=== PATIENT | male | born 1980 | race Caucasian/White ===

== ENCOUNTER 2021-07-24 14:41 | Outpatient (REF) | payer OTHER, SELFPAY | END 2021-07-24 14:42 | disposition home or self-care (01) | LOC: HO.LAB 14:41 | PROVIDERS: Visit Provider Internal Medicine | DX: Z20.822 Contact with and (suspected) exposure to COVID-19 (principal) | CPT/HCPCS: C9803; U0003; U0005 ==

== ENCOUNTER 2021-11-28 10:01 | Emergency (ER) | payer SELFPAY ==
[2021-11-28 11:35] VITALS: BP 172/85; PULSE 74; RESP 19; TEMP 36.6; O2SAT 99; BMI 28.1
[2021-11-28 14:14] LABS: MANUAL DIFF FLAG NO
[2021-11-28 14:16] LABS: Basophils Percent Auto 0.3 % (0-2); Eosinophils Percent Auto 0.3 % (0-4); Hematocrit 48.8 % (42.0-52.0); Imm Gran Abs Auto 0.02 X10*3/uL (0.00-0.03); Imm Gran Pct Auto 0.3 % (0.0-0.4); Lymphocytes Absolute Auto 1.3 X10*3/uL (1.2-4.9); Mean Corpuscular HGB Conc 34.8 g/dl (31.0-36.0); Mean Corpuscular Hemoglobin 30.7 pg (27.0-33.0); Mean Corpuscular Volume 88.2 fL (80.0-98.0); Mean Platelet Volume 9.5 fL (9.4-12.4); Monocytes Absolute Auto 0.4 X10*3/uL (0.1-1.2); Monocytes Percent Auto 5.4 % (2-11); Neutrophils Absolute Auto 5.8 x10*3/uL (2.0-8.3); Neutrophils Percent Auto 76.7 % (45-73); Platelet Count 272 X10*3/uL (160-400); Red Blood Count 5.53 X10*6/uL (4.60-5.80); Red Cell Distribution Width 11.7 % (11.0-16.0); White Blood Count 7.5 X10*3/uL (4.8-10.8)
[2021-11-28 14:25] LABS: Appearance Urine CLOUDY; Color Urine RED; Glucose Urine UA NEG (NEG); Nitrite Urine NEG (NEG); Specific Gravity - Urine 1.015 (1.005-1.025); UACC Culture Trigger NO; Urine Blood 3+ (NEG); Urine Ketones NEG (NEG); Urine Protein 2+ MG/DL (NEG-TRACE)
[2021-11-28 14:29] LABS: Leukocyte Esterase Urine NEG (NEG)
[2021-11-28 14:32] LABS: Anion Gap 13 (12-20); Blood Urea Nitrogen 25 mg/dL (9-16); Calcium 10.3 mg/dL (8.4-10.2); Carbon Dioxide 25 mmol/L (22-29); Chloride 107 mmol/L (96-108); Creatinine Clr Calc Pharmacy 71.7; Estimated Glomerular Filt Rate 56; Glucose Random 92 mg/dL (60-115); Potassium 4.8 mmol/L (3.3-5.1); Sodium 140 mmol/L (135-145)
[2021-11-28 14:32] LABS: RBC Urine TNTC /HPF (0); WBC Urine 0-2 /HPF (0-4)
--- NOTE | 2021-11-28 19:40 | ED_ITS ---
HPI - Male Genitourinary General Chief complaint: Urogenital-Male Stated complaint: Blood in urine Time Seen by Provider: 11/28/21 17:48 Source: patient Mode of arrival: ambulatory Limitations: no limitations History of Present Illness HPI Narrative: Patient is a 41-year-old male with no significant medical history. He reports blood in his urine for 5 days. When this first started the urine was pink/ red tinged, but has since developed a darker red color. He does report that feels he is urinating less than he would anticipate based on how much fluid intake he has been drinking. Denies the presence of any clots in his urine. Denies abdominal pain, pelvic pain, fevers, chills, sweats, nausea, vomiting, upper back or flank pain, abnormal penile discharge, dysuria, urinary frequency / hesitancy / urgency. Denies any concerns about sexually transmitted infection, however he is currently sexually active. Complaint: other ( Hematuria) Onset (ago): day(s) (5) Duration: constant Related Data Previous Rx's Medication Instructions Recorded doxycycline monohydrate 100 mg 100 mg PO BID 7 Days #14 cap 11/28/21 capsule Allergies Allergy/AdvReac Type Severity Reaction Status Date / Time No Known Allergies Allergy Unverified 07/28/20 15:32 Review of Systems Review of Systems: Constitutional: No weight loss, fever, chills, weakness or fatigue. Skin: No rash or itching. Cardiovascular: No chest pain, chest pressure or chest discomfort. No palpitations or pedal edema. Respiratory: No shortness of breath, cough or sputum production. Gastrointestinal: No anorexia, nausea, vomiting or diarrhea. No abdominal pain or blood in stool. Genitourinary: + hematuria. No burning micturition. No urinary frequency or incontinence. Musculoskeletal: No muscle pain, back pain, joint pain or stiffness. Hematologic: No bleeding or bruising. Psychiatric:No depression or anxiety. Yes all other systems are reviewed and are negative PMFSH Past Medical History Attestation statement: The following information was validated with the patient. Source: old records reviewed Social History Social History Advance Directives: No Advance Directives Information Provided: No Physical Exam Vital Signs: Vital Signs: Last Vital Signs Temp 97.7 F 11/28/21 19:44 Pulse 68 11/28/21 19:44 Resp 16 11/28/21 19:44 BP 160/91 H 11/28/21 20:23 Pulse Ox 98 11/28/21 19:44 BMI result Body Mass Index 28.1 Vital signs have been reviewed as normal and appeared to be correct. Blood pressure abnormal; initially elevated 180/123, on repeat 160/90.? Heart rate normal.? Respiration rate normal. Temperature normal.? Oxygen saturation normal. Appearance: Alert.? Oriented X3.? No acute distress.?? Eyes: Pupils equal, round and reactive to light.?? ENT: Pharynx normal.?? Neck: Normal inspection.? Neck supple.?? CVS: + Hypertensive. Normal heart rate and rhythm.? Pulses normal.?? Respiratory: No respiratory distress.? Breath sounds normal.?? Abdomen: Soft and nontender.?? Genitourinary: + gross hematuria. No CVA tenderness. Skin: Skin warm and dry.? Normal skin color.? Normal skin turgor.?? Extremities: No lower extremity edema.? Neuro: Oriented X 3.? No motor deficit.? No sensory deficit. Course Course Course Narrative: Patient is a 41-year-old male with no significant medical history who presents emergency department for evaluation of gross hematuria. Labs, urinalysis, urine screening for gonorrhea and chlamydia, and post void residual bladder scan to be obtained. Disposition pending results. Initially presented hypertensive, denies any history of known hypertension, admits to feeling worked up in concerned about the blood in the urine. Denies any recent issues with persistent headaches, vision changes, neck pain, chest pain, palpitations, shortness of breath, dyspnea with exertion, pedal edema. Reevaluation(s) Reevaluation #1: Serum labs reviewed, no leukocytosis, no acute kidney injury, urinalysis reveals 2+ protein, 3+ blood, RBC TNTC. Urine gonorrhea and chlamydia pending. Post-void residual bladder scan 22 mL. Received ceftriaxone, will go home with prescription for doxycycline for prophylactic treatment of gonorrhea /chlamydia. Hypertension improved on repeat. Patient to be discharged home, with outpatient follow-up with Urology, provided with contact phone numbers for new PCP, advised to present to local pharmacy or grocery store to have blood pressure evaluated in a few days. Time: 20:25 [facility] - Male Genitourinary Lab Data Result diagrams: 11/28/21 14:05 11/28/21 14:05 Labs: Lab Results 11/28/21 11/28/21 11/28/21 Range/Units 14:05 14:05 14:08 WBC 7.5 (4.8-10.8) X10*3/uL RBC 5.53 (4.60-5.80) X10*6/uL Hgb 17.0 (14.0-18.0) g/dl Hct 48.8 (42.0-52.0) % MCV 88.2 (80.0-98.0) fL MCH 30.7 (27.0-33.0) pg MCHC 34.8 (31.0-36.0) g/dl RDW 11.7 (11.0-16.0) % Plt Count 272 (160-400) X10*3/uL MPV 9.5 (9.4-12.4) fL Immature Gran % (Auto) 0.3 (0.0-0.4) % Neut % (Auto) 76.7 H (45-73) % Lymph % (Auto) 17.0 L (20-40) % [place] % (Auto) 5.4 (2-11) % Eos % (Auto) 0.3 (0-4) % Baso % (Auto) 0.3 (0-2) % Lymph # (Auto) 1.3 (1.2-4.9) X10*3/uL [place] # (Auto) 0.4 (0.1-1.2) X10*3/uL Eos # (Auto) 0.0 (0.0-0.4) X10*3/uL Baso # (Auto) 0.0 (0.0-0.2) X10*3/uL Abs Immat Gran (auto) 0.02 (0.00-0.03) X10*3/uL Absolute Neuts (auto) 5.8 (2.0-8.3) x10*3/uL Absolute Nucleated RBC 0.000 (0.0-0.012) X10*3/uL Nucleated RBC % (auto) 0.0 (0.0-0.2) /100WBC Sodium 140 (135-145) mmol/L Potassium 4.8 (3.3-5.1) mmol/L Chloride 107 (96-108) mmol/L Carbon Dioxide 25 (22-29) mmol/L Anion Gap 13 (12-20) BUN 25 H (9-16) mg/dL Creatinine 1.40 (0.5-1.4) mg/dL Estim Creat Clear Calc 71.7 Estimated GFR 56 Random Glucose 92 (60-115) mg/dL Calcium 10.3 H (8.4-10.2) mg/dL Urine Color RED A Urine Appearance CLOUDY Urine pH 6.0 (5.0-8.0) Ur Specific [place] 1.015 (1.005-1.025) Urine Protein 2+ H (NEG-TRACE) MG/DL Urine Glucose (UA) NEG (NEG) MG/DL Urine Ketones NEG (NEG) MG/DL Urine Blood 3+ H (NEG) Urine Nitrite NEG (NEG) Ur Leukocyte Esterase NEG (NEG) Urine RBC TNTC H (0) /HPF Urine WBC 0-2 (0-4) /HPF Ur Squamous Epith Cells NONE /LPF Urine Bacteria NONE /LPF Discharge Plan Discharge Clinical Impression: Hematuria, Hypertension Patient Disposition: Home, Self-Care Instructions: Heart Healthy Diet (ED), Hematuria (ED), DASH Eating Plan (ED), Hypertension (ED) Additional Instructions: You were evaluated in the emergency department for your concerns about blood in your urine. As we discussed, your kidney function is normal, there is no indica tion of infection in the urine at this time. 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 You need to contact the urology office tomorrow to schedule a follow-up appointment. Please return to ED for any worsening symptoms or concerns. Your blood pressure has been elevated while here. You should have your blood pressure re-evaluated over the next few days at a pharmacy or grocery store with a cuff. Please return to the emergency department with any chest pain, confusion, difficulty with speech, numbness/ tingling, lack of coordination, dizziness, passing out, shortness of breath, nausea with persistent vomiting, or any new or concerning symptoms Prescriptions: New doxycycline monohydrate 100 mg capsule 100 mg PO BID 7 Days Qty: 14 RF: 0 Referrals: Cornell Garcia MD [Physician] - 2 days
[2021-11-28 19:44] VITALS: BP 180/123; PULSE 68; RESP 16; TEMP 36.5; O2SAT 98
[2021-11-28] MEDS: Lidocaine HCl 1 % 20 ML VIAL SUBCUT (20:02)
[2021-11-28] MEDS: cefTRIAXone sodium 500 MG VIAL IM (20:03)
--- NOTE | 2021-11-28 20:04 | PC.NURSE ---
diluted Rocephin with 1 ml of 1% lidocaine hcl per policy
--- NOTE | 2021-11-28 20:18 | PC.NURSE ---
post void ultrasound done as ordered. Results 22ml ,RN and provider notified .
[2021-11-28 20:23] VITALS: BP 160/91
== END 2021-11-28 20:50 | disposition home or self-care (01) ==
PROVIDERS: Nurse Practitioner Family; Emergency Provider Emergency Medicine
DX: R31.9 Hematuria, unspecified (principal); I10 Essential (primary) hypertension
CPT/HCPCS: 36415; 51798; 80048; 81001; 85025; 87491; 87591; 96372; 99283; 99284; J0696